=== PATIENT | female | born 1955 | race African-American/Black ===

== ENCOUNTER → 2018-04-09 | Day surgery (SDC) | payer OTHER ==
--- NOTE | 2018-04-11 14:33 | PATH ---
Cytology Non-Gynecological Report Patient Name: LAURO AGUILAR [facility]. Rec. #: [id number] /Age/Gender: 1955 (Age: 63) / F Account: [id number] Location: RADIOLOGY INTER Taken: 04/09/2018 Received: 04/09/2018 Reported: 04/11/2018 Physicians: Marshall Hooper M.D. Specimen(s) Received LEFT THYROID FNA Clinical History Left thyroid nodule, 1.46 x 1.18 x 1.22 cm Final Diagnosis THYROID, LEFT, FINE NEEDLE ASPIRATION: SATISFACTORY FOR EVALUATION. BETHES[place] CLASS II: BENIGN. CYTOLOGIC FINDINGS SHOW A BENIGN FOLLICULAR NODULE WITH FEATURES CONSISTENT WITH CHRONIC LYMPHOCYTIC THYROIDITIS. FOLLICULAR CELLS WITH FOCAL REACTIVE CHANGES DISPERSED CLUSTERS IN A BACKGROUND OF LYMPHOCYTES, LYMPHOHISTIOCYTIC AGGREGATES, AND LYMPHOID TANGLES PRESENT. Comment: Suggest clinical/radiologic and serologic correlation. Electronically Signed Caridad Batista M.D. Gross Description Received are eight direct smears, four of which are air-dried and Diff-Quik stained, and four of which are alcohol fixed and Pap stained. Also received is 20 ml of bloody formalin from which one cellblock is prepared.
== END | disposition home or self-care (01) ==
LOC: JRADIR 09:39
PROVIDERS: ATTEND Internal Medicine Endocrinology, Diabetes & Metabolism
PROC: 0G9G3ZX Drainage of Left Thyroid Gland Lobe, Percutaneous Approach, Diagnostic (ICD-10-PCS; principal; 2018-04-09)
DX: E06.3 Autoimmune thyroiditis (principal)
CPT/HCPCS: 76942; 88173; 88305-TC

== ENCOUNTER → 2020-09-29 | Day surgery (SDC) | payer OTHER | END | disposition home or self-care (01) | LOC: JRADIR 11:16 | PROVIDERS: ATTEND Internal Medicine Endocrinology, Diabetes & Metabolism | PROC: 0G9K3ZX Drainage of Thyroid Gland, Percutaneous Approach, Diagnostic (ICD-10-PCS; principal; 2020-09-29) | PROC: BG44ZZZ Ultrasonography of Thyroid Gland (ICD-10-PCS; 2020-09-29) | DX: E04.1 Nontoxic single thyroid nodule (principal) | CPT/HCPCS: 10005; 76536-TC ==

== ENCOUNTER 2022-07-17 04:14 | Day surgery (SDC) | payer OTHER ==
[2022-07-14 15:21] VITALS: BMI 54.9
[2022-07-17 07:45] VITALS: RESP 18
[2022-07-17 10:23] VITALS: BP 121/71; PULSE 88
[2022-07-17 10:28] VITALS: TEMP 97.8
== END 2022-07-17 10:40 | disposition home or self-care (01) ==
LOC: JASU-ENDO 04:14
PROVIDERS: ATTEND Internal Medicine Gastroenterology
PROC: 0DBL8ZX Excision of Transverse Colon, Via Natural or Artificial Opening Endoscopic, Diagnostic (ICD-10-PCS; 2022-07-17)
PROC: 0DBN8ZX Excision of Sigmoid Colon, Via Natural or Artificial Opening Endoscopic, Diagnostic (ICD-10-PCS; principal; 2022-07-17 09:00)
DX: Z12.11 Encounter for screening for malignant neoplasm of colon (principal); D12.3 Benign neoplasm of transverse colon; D12.5 Benign neoplasm of sigmoid colon; K57.30 Diverticulosis of large intestine without perforation or abscess without bleeding; K64.4 Residual hemorrhoidal skin tags
CPT/HCPCS: 88305-TC